=== PATIENT | female | born 1960 | race Caucasian/White ===

== ENCOUNTER 2019-02-28 17:18 | Emergency (ER) | payer MEDICAID, OTHER ==
[~2019-02-28] VITALS: Ht 167.6 cm; Wt 115.5 kg
[2019-02-28 17:21] VITALS: Ht 167.6 cm; Wt 115.5 kg
[2019-02-28] MEDS ORDERED: morphine 4 MG/ML VIAL IV STA (18:09)
[2019-02-28] MEDS ORDERED: ONDANSETRON 4 MG INJ IV STA ×2 (18:09→21:56)
--- NOTE | 2019-02-28 18:23 | ERD ---
ER Documentation Chief Complaint Chief Complaint pt is bib family with c/o abd pain starting a few days ago HPI This is a 58-year-old female that presents to the emergency department past medical history of insulin-dependent diabetes mellitus and hypertension with chest pain and abdominal pain. The patient indicates that 1 month ago she had a mechanical fall. She fell backwards and landed on her upper back and did not hit her head or lose consciousness. She landed onto cement. The patient states that since that time she is been experiencing a pleuritic chest pain. She however denies any chest pressure that radiates to the neck arm back or jaw. She does indicate that roughly 48 hours ago she developed right upper quadrant pain that radiated to her back. She attributed this to the pain from the fall. However she has been taking Tylenol with no improvement and therefore came to the emergency department to be further evaluated. She denies any recent travel or prolonged immobilization. ROS All systems reviewed and are negative except as per history of present illness. Allergies Allergies: Coded Allergies: No Known Allergy (Unverified , 02/28/19) Physical Exam Vitals Vital Signs Date Temp Pulse Resp B/P (MAP) Pulse Ox O2 O2 Flow FiO2 Time Delivery Rate 02/28/19 81 17 113/57 98 Room Air 20:30 (75) 02/28/19 84 24 141/80 98 Room Air 19:30 (100) 02/28/19 82 20 141/86 96 Room Air 19:02 (104) 02/28/19 99.5 90 18 168/81 95 17:21 (110) Physical Exam Constitutional:Well-developed. Well-nourished. HEENT:Normocephalic. Atraumatic.Pupils were equal round reactive to light. Moist mucous membranes.No tonsillar exudates. No nasal septal hematoma. No hemotympanum Neck: No nuchal rigidity. No lymphadenopathy. No posterior cervical spine tenderness or step-offs. Respiratory: Not using accessory muscles of respiration.Lungs were clear to auscultation bilaterally. No rhonchi. No rales. No wheezing. Cardiovascular: Regular rate regular rhythm.No murmurs. No rubs were appre ciated.S1, S2 normal. Distal pulses are palpable 2+ bilaterally. Bilateral reproducible chest wall tenderness with no crepitus no ecchymosis no flail chest and tenderness extends over the lateral rib cage bilaterally. GI: Abdomen was soft and obese so exam is limited due to body habitus. Right upper quadrant tenderness with negative Huber sign. Ecchymosis of the abdomen. Non Distended. No pulsatile abdominal masses or bruits. No rebound. No guarding. Bowel sounds were present and normal. Muscle skeletal: Full range of motion of both the upper and lower extremities bilaterally.Normal muscle tone.No assymetrical calf tenderness or swelling. Skin: No petechia, no purpura. No lesions on the palms or the soles of the feet. No maculopapular rash. NEURO: Patient was alert, awake, orientated x3.No facial droop. Gait observed and normal with no ataxia.Speech had regular rate and rhythm. No focal neurological deficits. Result Diagram: 02/28/19182202/28/191822 Results 24 hrs Laboratory Tests Test 02/28/19 18:23 White Blood Count 10.2 10^3/ul Red Blood Count 4.48 10^6/ul Hemoglobin 11.5 g/dl Hematocrit 35.5 % Mean Corpuscular Volume 79.2 fl Mean Corpuscular Hemoglobin 25.7 pg Mean Corpuscular Hemoglobin Concent 32.4 g/dl Red Cell Distribution Width 14.4 % Platelet Count 286 10^3/UL Mean Platelet Volume 10.1 fl Immature Granulocytes % 0.700 % Neutrophils % 72.5 % Lymphocytes % 17.6 % Monocytes % 7.1 % Eosinophils % 1.7 % Basophils % 0.4 % Nucleated Red Blood Cells % 0.0 /100WBC Immature Granulocytes # 0.070 10^3/ul Neutrophils # 7.4 10^3/ul Lymphocytes # 1.8 10^3/ul Monocytes # 0.7 10^3/ul Eosinophils # 0.2 10^3/ul Basophils # 0.0 10^3/ul Nucleated Red Blood Cells # 0.0 10^3/ul Prothrombin Time 12.9 Sec Prothrombin Time Ratio 1.0 INR International Normalized Ratio 0.96 Activated Partial Thromboplast Time 26.5 Sec Sodium Level 140 mmol/L Potassium Level 4.1 mmol/L Chloride Level 102 mmol/L Carbon Dioxide Level 29 mmol/L Anion Gap 9 Blood Urea Nitrogen 19 mg/dl Creatinine 0.60 mg/dl Est Glomerular Filtrat Rate mL/min > 60 mL/min Glucose Level 179 mg/dl Calcium Level 9.9 mg/dl Total Bilirubin 0.2 mg/dl Direct Bilirubin 0.00 mg/dl Indirect Bilirubin 0.2 mg/dl Aspartate Amino Transf (AST/SGOT) 26 IU/L Alanine Aminotransferase (ALT/SGPT) 33 IU/L Alkaline Phosphatase 185 IU/L Creatine Kinase 41 IU/L Creatine Kinase Index 0.9 Creatinine Kinase MB (Mass) 0.35 ng/ml Troponin I < 0.012 ng/ml Total Protein 8.1 g/dl Albumin 4.3 g/dl Globulin 3.80 g/dl Albumin/Globulin Ratio 1.13 Current Medications Medications Dose Sig/Amina Start Time Status Last (Trade) Ordered Route PRN Stop Time Admin Dose Reason Admin Morphine 4 mg ONCE STAT 02/28/19 DC 02/28/19 Sulfate IV 18:09 18:51 (morphine) 02/28/19 18:12 Ondansetron 4 mg ONCE STAT 02/28/19 DC 02/28/19 HCl (Zofran IV 18:09 18:51 Inj) 02/28/19 18:12 Procedures/MDM This is a 50-year-old female that presented to the emergency department with blunt posterior chest wall tenderness. She was also complaining of abdominal pain of her right upper quadrant. She was placed on a quality assurance monitor chassis continuous pulse oximetry and IV access was attempted by nursing to . I did obtain a 12-lead EKG tracing to rule out for atypical myocardial infarction. 12 Lead EKG tracing ordered and reviewed by myself showed: Normal sinus rhythm of 91 bpm and no arrhythmia. [place] interval normal. QRS duration normal. No ST segment elevation No ST segment depression. No changes consistent with acute ischemia. Given that the patient had blunt chest trauma I did feel is necessary to obtain a CT scan the patient's chest which was reviewed by the radiologist as well as myself and indicated the following: Subacute, healing fracture is seen bilaterally in the anterior lateral ribs as described above. Some of the fractures appear minimally angulated. There is otherwise no acute pulmonary process. Patient had bilateral rib fractures on the right ribs 4 through 7 and on the left 3 through 7 The patient received analgesic medication. Her pain had improved. She did have tenderness in the right upper quadrant I did feel is necessary to obtain an ultrasound the gallbladder which was reviewed by myself the radiologist and was found to be negative for cholelithiasis. The patient was discharged home in fair condition. They were instructed to return to the emergency department at any time if there was any worsening of their condition. The patient stated they would follow up with their PCP in the next 24-48 hours to initiate a suitable medication regimen under the care of their PCP as well as to allow their PCP to monitor any drug reactions. The patient was discharged home with prescriptions after they gave informed consent to the new medication. They were also fully informed by myself on the adverse effects and adverse drug interactions in order to provide adequate safeguards to prevent possible adverse reactions to medications. Departure Diagnosis: Primary Impression: Multiple fractures of ribs of both sides with delayed healing Condition: CRISTINO Elizabeth MD Feb 28, 2019 18:23
[2019-02-28] MEDS ORDERED: HYDR-4011 PO (21:49)
[2019-02-28] MEDS ORDERED: IBUP800T48 PO (21:49)
[2019-02-28] MEDS ORDERED: HYDROmorphONE 1 MG/ML SYG IV STA (21:56)
[2019-02-28 22:45] VITALS: BP 124/68; PULSE 85; RESP 20
== END 2019-02-28 22:45 | disposition home or self-care (01) ==
LOC: E/R 17:18
DX: S22.43XA Multiple fractures of ribs, bilateral, initial encounter for closed fracture (principal); I10 Essential (primary) hypertension; E11.9 Type 2 diabetes mellitus without complications; S30.1XXA Contusion of abdominal wall, initial encounter; W18.30XA Fall on same level, unspecified, initial encounter; Y92.9 Unspecified place or not applicable
CPT/HCPCS: 71250; 76705; 80053; 82550; 82553; 84484; 85025; 85610; 85730; 93005; 96374; 96375; 96376; J1170; J2270; J2405; Z7502; Z7610